=== PATIENT | female | born 1990 | race Caucasian/White ===

== ENCOUNTER → 2016-03-26 | Outpatient (REF) | payer OTHER | LOC: LAB 11:50 | PROVIDERS: ATTEND Nurse Practitioner Family | DX: E10.65 Type 1 diabetes mellitus with hyperglycemia (principal) | CPT/HCPCS: 83036 ==

== ENCOUNTER 2016-07-04 10:15 | Emergency (ER) | payer OTHER ==
[~2016-07-04] VITALS: Ht 170.2 cm; Wt 100.0 kg
[~2016-07-04 10:15] MED LIST: Amoxicillin; FERR-74 PO; IBUP-15 PO; INSASP1U SQ; INSU100V5 SQ; OXYC1TAB87 PO; PREN-46 PO; SULF-228 PO
--- OUTSIDE RECORDS SUMMARY | 2016-07-04 10:20 | XMS REPORT | Continuity of Care Document ---
Author Author [facility] Address Unknown Phone Unavailable Allergies Active Description Code Type Severity Reaction Onset Reported/Identified Relationship to Patient Clinical Status Yes No Known Drug Allergies [id number] Drug Allergy Unknown N/ A 09/09/2012 Medications Problems Date Dx Coded Attending Type Code Diagnosis Diagnosed By 09/09/2012 Ot 564.09 09/09/2012 Ot 682.3 09/09/2012 Ot 789.09 04/09/2013 Kulwinder Moscoso MD Ot 250.02 DIAB LILI WO COMPL, TYPE II OR UNSPEC TY 04/09/2013 Kulwinder Moscoso MD Ot V65.3 DIETARY SURVEIL/ASSI[employer]ACH 08/12/2013 TONO RICHARD MD Ot 250.00 DIAB LLII WO COMPL, TYPE II OR UNSPEC TY 08/12/2013 TONO RICHARD MD Ot 285.1 AC POSTHEMORRHAG ANEMIA 08/12/2013 TONO RICHARD MD Ot 285.29 ANEMIA OF OTHER CHRONIC DISEASE 08/12/2013 TONO RICHARD MD Ot 648.01 DIABETES-DELIVERED 08/12/2013 TONO RICHARD MD Ot 648.21 ANEMIA-DELIVERED 08/12/2013 TONO RICHARD MD Ot 649.01 TOBACCO USE DISORDER COMP PREG/ CHILDBIRT 08/12/2013 TONO RICHARD MD Ot 661.01 PRIM UTERINE INERT-DELIV 08/12/2013 TONO RICHARD MD Ot V27.0 DELIVER-SINGLE LIVEBORN 08/12/2013 TONO RICHARD MD Ot V58.67 LONG-TERM (CURRENT) USE OF INSULIN 02/15/2014 Kulwinder Moscoso MD Ot 640.90 02/15/2014 Kulwinder Moscoso MD Ot 640.90 02/15/2014 Kulwinder Moscoso MD Ot 640.90 02/15/2014 Kulwinder Moscoso MD Ot V72.42 02/15/2014 Danis ESQUIVEL, Kulwinder Sweeney Ot 250.00 02/15/2014 Danis ESQUIVEL, Kulwinder Sweeney Ot V49.89 02/15/2014 Ot 250.02 02/15/2014 Ot V65.3 02/15/2014 JOSE MANUEL ESQUIVEL, TONO Munoz Ot 648.03 02/15/2014 JOSE MANUEL ESQUIVEL, TONO Munoz Ot V22.1 02/15/2014 JOSE MANUEL ESQUIVEL, TONO Munoz Ot 648.03 02/15/2014 JOSE MANUEL ESQUIVEL, TONO Munoz Ot V28.81 05/17/2014 ANURADHA ESQUIVEL, FAY Maddox Ot 724.2 05/17/2014 ANURADHA ESQUIVEL, FAY Maddox Ot V57.1 05/21/2014 ANURADHA ESQUIVEL, FAY Maddox Ot 724.2 LUMBAGO 05/21/2014 ANURADHA ESQUIVEL, FAY Maddox Ot V57.1 PHYSICAL THERAPY NEC 07/14/2014 Danis ESQUIVEL, Kulwinder Sweeney Ot V72.42 07/14/2014 Danis ESQUIVEL, Kulwinder Sweeney Ot 250.00 07/14/2014 JOSE MANUEL ESQUIVEL, TONO Munoz Ot V22.1 01/20/2015 JAYANT GILLIS MD, JD Cortez Ot N89.8 02/12/2015 Danis ESQUIVEL, Kulwinder Sweeney Ot 640.90 02/12/2015 Danis ESQUIVEL, Kulwinder Sweeney Ot 640.90 02/12/2015 Danis ESQUIVEL, Kulwinder Sweeney Ot 640.90 02/21/2015 JAYANT GILLIS MD, JD Cortez Ot N89.8 05/20/2015 Danis ESQUIVEL, Kulwinder Sweeney Ot V72.42 05/20/2015 Danis ESQUIVEL, Kulwinder Sweeney Ot 250.00 05/20/2015 Danis ESQUIVEL, Kulwinder Sweeney Ot V49.89 05/20/2015 Ot 250.02 05/20/2015 Ot V65.3 05/20/2015 JOSE MANUEL ESQUIVEL, TONO Munoz Ot 648.03 05/20/2015 JOSE MANUEL ESQUIVEL, TONO Munoz Ot V22.1 05/20/2015 JOSE MANUEL ESQUIVEL, TONO Munoz Ot 648.03 05/20/2015 JOSE MANUEL ESQUIVEL, TONO Munoz Ot V28.81 05/20/2015 JOSE MANUEL ESQUIVELTONO Ot 250.00 05/20/2015 TONO RICHARD MD Ot 648.03 05/20/2015 TONO RICHARD MD Ot V28.89 05/20/2015 TONO RICHARD MD Ot V58.67 05/20/2015 TONO RICHARD MD Ot 250.00 05/20/2015 TONO RICHARD MD Ot 648.03 05/20/2015 TONO RICHARD MD Ot V58.67 05/20/2015 JAYANT GILLIS MD, JD Cortez Ot N89.8 05/22/2015 WILGERS, DARLIN L OIL CHANGER Ot E10.65 06/02/2015 WILGERS, DARLIN L OIL CHANGER Ot E10.65 TYPE 1 DIABETES MELLITUS WITH HYPERGLYCE 06/04/2015 WILGERS, DARLIN L OIL CHANGER Ot E10.65 TYPE 1 DIABETES MELLITUS WITH HYPERGLYCE 07/03/2015 WILGERS, DARLIN L OIL CHANGER Ot E10.65 TYPE 1 DIABETES MELLITUS WITH HYPERGLYCE 10/07/2015 WILGERS, DARLIN L OIL CHANGER Ot E10.65 TYPE 1 DIABETES MELLITUS WITH HYPERGLYCE 10/08/2015 WILGERS, DARLIN L OIL CHANGER Ot E10.65 TYPE 1 DIABETES MELLITUS WITH HYPERGLYCE 01/14/2016 Danis ESQUIVEL, Kulwinder Sweeney Ot V72.42 EXAMINATION OR TEST, POSITIVE 01/14/2016 Kulwinder Moscoso MD Ot 250.00 DIAB LILI WO COMPL, TYPE II OR UNSPEC TY 01/14/2016 Kulwinder Moscoso MD Ot V49.89 OTH SPEC CONDITIONS INFLU HEALTH 01/14/2016 TONO RICHARD MD Ot 648.03 DIABETES-ANTEPARTUM 01/14/2016 TONO RICHARD MD Ot V22.1 SUPERVIS OTH NORMAL PREG 01/14/2016 TONO RICHARD MD Ot 648.03 DIABETES-ANTEPARTUM 01/14/2016 TONO RICHARD MD Ot V28.81 ENCOUNTER FOR ANATOMIC SURVEY 01/14/2016 OTNO RICHARD MD Ot 250.00 DIAB LILI WO COMPL, TYPE II OR UNSPEC TY 01/14/2016 TONO RICHARD MD Ot 648.03 DIABETES-ANTEPARTUM 01/14/2016 TONO RICHARD MD Ot V28.89 OTHER SPECIFIED SCREENING 01/14/2016 TONO RICHARD MD Ot V58.67 LONG-TERM (CURRENT) USE OF INSULIN 01/14/2016 TONO RICHARD MD Ot 250.00 DIAB LILI WO COMPL, TYPE II OR UNSPEC TY 01/14/2016 TONO RICHARD MD Ot 648.03 DIABETES-ANTEPARTUM 01/14/2016 TONO RICHARD MD Ot V58.67 LONG-TERM (CURRENT) USE OF INSULIN 01/14/2016 JAYANT GILLIS MD, JD Cortez Ot N89.8 OTHER SPECIFIED NONINFLAMMATORY DISORDER 01/14/2016 WILGERS, DARLIN L OIL CHANGER Ot E10.65 TYPE 1 DIABETES MELLITUS WITH HYPERGLYCE 01/14/2016 WILGERS, DARLIN L OIL CHANGER Ot E10.65 TYPE 1 DIABETES MELLITUS WITH HYPERGLYCE 01/16/2016 WILGERS, DARLIN L OIL CHANGER Ot E10.65 TYPE 1 DIABETES MELLITUS WITH HYPERGLYCE 01/20/2016 WILGERS, DARLIN L OIL CHANGER Ot G56.01 CARPAL TUNNEL SYNDROME, RIGHT UPPER LIMB 01/23/2016 WILGERS, DARLIN L OIL CHANGER Ot M79.1 MYALGIA 01/23/2016 WILGERS, DARLIN L OIL CHANGER Ot R53.83 OTHER FATIGUE 01/24/2016 WILGERS, DARLIN L OIL CHANGER Ot E10.65 TYPE 1 DIABETES MELLITUS WITH HYPERGLYCE 02/06/2016 WILGERS, DARLIN L OIL CHANGER Ot G56.01 CARPAL TUNNEL SYNDROME, RIGHT UPPER LIMB 02/06/2016 WILGERS, DARLIN L OIL CHANGER Ot M79.1 MYALGIA 02/06/2016 WILGERS, DARLIN L OIL CHANGER Ot R53.83 OTHER FATIGUE 04/01/2016 WILGERS, DARLIN L OIL CHANGER Ot E10.65 TYPE 1 DIABETES MELLITUS WITH HYPERGLYCE 04/07/2016 WILGERS, DARLIN L OIL CHANGER Ot E10.65 TYPE 1 DIABETES MELLITUS WITH HYPERGLYCE 04/13/2016 WILGERS, DARLIN L OIL CHANGER Ot E10.65 TYPE 1 DIABETES MELLITUS WITH HYPERGLYCE 06/02/2016 Kulwinder Moscoso MD Ot V72.42 EXAMINATION OR TEST, POSITIVE 06/02/2016 Kulwinder Moscoso MD Ot 250.00 DIAB LILI WO COMPL, TYPE II OR UNSPEC TY 06/02/2016 Kulwinder Moscoso MD Ot V49.89 OTH SPEC CONDITIONS INFLU HEALTH 06/02/2016 TONO RICHARD MD Ot 648.03 DIABETES-ANTEPARTUM 06/02/2016 TONO RICHARD MD Ot V22.1 SUPERVIS OTH NORMAL PREG 06/02/2016 TONO RICHARD MD Ot 648.03 DIABETES-ANTEPARTUM 06/02/2016 TONO RICHARD MD Ot V28.81 ENCOUNTER FOR ANATOMIC SURVEY 06/02/2016 TONO RICHARD MD Ot 250.00 DIAB LILI WO COMPL, TYPE II OR UNSPEC TY 06/02/2016 TONO RICHARD MD Ot 648.03 DIABETES-ANTEPARTUM 06/02/2016 TONO RICHARD MD Ot V28.89 OTHER SPECIFIED SCREENING 06/02/2016 TONO RICHARD MD Ot V58.67 LONG-TERM (CURRENT) USE OF INSULIN 06/02/2016 TONO RICHARD MD Ot 250.00 DIAB LILI WO COMPL, TYPE II OR UNSPEC TY 06/02/2016 TONO RICHARD MD Ot 648.03 DIABETES-ANTEPARTUM 06/02/2016 TONO RICHARD MD Ot V58.67 LONG-TERM (CURRENT) USE OF INSULIN 06/02/2016 JAYANT GILLIS MD, JD Cortez Ot N89.8 OTHER SPECIFIED NONINFLAMMATORY DISORDER 06/02/2016 WILGERS, DARLIN L OIL CHANGER Ot E10.65 TYPE 1 DIABETES MELLITUS WITH HYPERGLYCE 06/02/2016 WILGERS, DARLIN L OIL CHANGER Ot E10.65 TYPE 1 DIABETES MELLITUS WITH HYPERGLYCE 06/02/2016 WILGERS, DARLIN L OIL CHANGER Ot E10.65 TYPE 1 DIABETES MELLITUS WITH HYPERGLYCE 06/02/2016 WILGERS, DARLIN L OIL CHANGER Ot G56.01 CARPAL TUNNEL SYNDROME, RIGHT UPPER LIMB 06/02/2016 WILGERS, DARLIN L OIL CHANGER Ot M79.1 MYALGIA 06/02/2016 WILGERS, DARLIN L OIL CHANGER Ot R53.83 OTHER FATIGUE 06/02/2016 WILGERS, DARLIN L OIL CHANGER Ot E10.65 TYPE 1 DIABETES MELLITUS WITH HYPERGLYCE 06/02/2016 WILGERS, DARLIN L OIL CHANGER Ot E10.65 TYPE 1 DIABETES MELLITUS WITH HYPERGLYCE 06/02/2016 WILGERS, DARLIN L OIL CHANGER Ot E10.65 TYPE 1 DIABETES MELLITUS WITH HYPERGLYCE 06/02/2016 WILGERS, DARLIN L OIL CHANGER Ot G56.01 CARPAL TUNNEL SYNDROME, RIGHT UPPER LIMB 06/02/2016 DARLIN VENTURA Arabella OIL CHANGER Ot M79.1 MYALGIA 06/02/2016 DARLIN VENTURA Arabella OIL CHANGER Ot R53.83 OTHER FATIGUE 06/02/2016 DARLIN VENTURA Arabella OIL CHANGER Ot E10.65 TYPE 1 DIABETES MELLITUS WITH HYPERGLYCE 06/10/2016 DARLIN VENTURA Arabella OIL CHANGER Ot E10.65 TYPE 1 DIABETES MELLITUS WITH HYPERGLYCE 06/10/2016 Kulwinder Moscoso MD Ot V72.42 EXAMINATION OR TEST, POSITIVE 06/10/2016 Kulwinder Moscoso MD Ot 250.00 DIAB LILI WO COMPL, TYPE II OR UNSPEC TY 06/10/2016 Kulwinder Moscoso MD Ot V49.89 OTH SPEC CONDITIONS INFLU HEALTH 06/10/2016 TONO RICHARD MD Ot 648.03 DIABETES-ANTEPARTUM 06/10/2016 TONO RICHARD MD Ot V22.1 SUPERVIS OTH NORMAL PREG 06/10/2016 TONO RICHARD MD Ot 648.03 DIABETES-ANTEPARTUM 06/10/2016 TONO RICHARD MD Ot V28.81 ENCOUNTER FOR ANATOMIC SURVEY 06/10/2016 TONO RICHARD MD Ot 250.00 DIAB LILI WO COMPL, TYPE II OR UNSPEC TY 06/10/2016 TONO RICHARD MD Ot 648.03 DIABETES-ANTEPARTUM 06/10/2016 TONO RICHARD MD Ot V28.89 OTHER SPECIFIED SCREENING 06/10/2016 TONO RICHARD MD Ot V58.67 LONG-TERM (CURRENT) USE OF INSULIN 06/10/2016 TONO RICHARD MD Ot 250.00 DIAB LILI WO COMPL, TYPE II OR UNSPEC TY 06/10/2016 TONO RICHARD MD Ot 648.03 DIABETES-ANTEPARTUM 06/10/2016 TONO RICHARD MD Ot V58.67 LONG-TERM (CURRENT) USE OF INSULIN 06/10/2016 JAYANT GILLIS MD, JD Cortez Ot N89.8 OTHER SPECIFIED NONINFLAMMATORY DISORDER 06/10/2016 CARINTERRY DARLIN Arabella OIL CHANGER Ot E10.65 TYPE 1 DIABETES MELLITUS WITH HYPERGLYCE 06/10/2016 DARLIN VENTURA OIL CHANGER Ot E10.65 TYPE 1 DIABETES MELLITUS WITH HYPERGLYCE 06/10/2016 DARLIN VENTURA OIL CHANGER Ot E10.65 TYPE 1 DIABETES MELLITUS WITH HYPERGLYCE 06/10/2016 DARLIN VENTURA OIL CHANGER Ot G56.01 CARPAL TUNNEL SYNDROME, RIGHT UPPER LIMB 06/10/2016 DARLIN VENTURA OIL CHANGER Ot M79.1 MYALGIA 06/10/2016 DARLIN VENTURA OIL CHANGER Ot R53.83 OTHER FATIGUE 06/10/2016 DARLIN VENTURA OIL CHANGER Ot E10.65 TYPE 1 DIABETES MELLITUS WITH HYPERGLYCE 06/10/2016 DARLIN VENTURA OIL CHANGER Ot M79.1 MYALGIA 06/10/2016 DARLIN VENTURA OIL CHANGER Ot R53.83 OTHER FATIGUE 06/10/2016 DARLIN VENTURA OIL CHANGER Ot G56.01 CARPAL TUNNEL SYNDROME, RIGHT UPPER LIMB 06/10/2016 DARLIN VENTURA OIL CHANGER Ot E10.65 TYPE 1 DIABETES MELLITUS WITH HYPERGLYCE 06/24/2016 Kulwinder Moscoso MD Ot V72.42 EXAMINATION OR TEST, POSITIVE 06/24/2016 Kulwinder Moscoso MD Ot 250.00 DIAB LILI WO COMPL, TYPE II OR UNSPEC TY 06/24/2016 Kulwinder Moscoso MD Ot V49.89 OTH SPEC CONDITIONS INFLU HEALTH 06/24/2016 TONO RICHARD MD Ot 648.03 DIABETES-ANTEPARTUM 06/24/2016 TONO RICHARD MD Ot V22.1 SUPERVIS OTH NORMAL PREG 06/24/2016 TONO RICHARD MD Ot 648.03 DIABETES-ANTEPARTUM 06/24/2016 TONO RICHARD MD Ot V28.81 ENCOUNTER FOR ANATOMIC SURVEY 06/24/2016 TONO RIHCARD MD Ot 250.00 DIAB LILI WO COMPL, TYPE II OR UNSPEC TY 06/24/2016 TONO RICHARD MD Ot 648.03 DIABETES-ANTEPARTUM 06/24/2016 TONO RICHARD MD Ot V28.89 OTHER SPECIFIED SCREENING 06/24/2016 TONO RICHARD MD Ot V58.67 LONG-TERM (CURRENT) USE OF INSULIN 06/24/2016 TONO RICHARD MD Ot 250.00 DIAB LILI WO COMPL, TYPE II OR UNSPEC TY 06/24/2016 TONO RICHARD MD Ot 648.03 DIABETES-ANTEPARTUM 06/24/2016 TONO RICHARD MD Ot V58.67 LONG-TERM (CURRENT) USE OF INSULIN 06/24/2016 JAYANT GILLIS MD, JD Cortez Ot N89.8 OTHER SPECIFIED NONINFLAMMATORY DISORDER 06/24/2016 DARLIN VENTURA OIL CHANGER Ot E10.65 TYPE 1 DIABETES MELLITUS WITH HYPERGLYCE 06/24/2016 WILDARLIN STEWART OIL CHANGER Ot E10.65 TYPE 1 DIABETES MELLITUS WITH HYPERGLYCE 06/24/2016 WILDARLIN STEWART OIL CHANGER Ot E10.65 TYPE 1 DIABETES MELLITUS WITH HYPERGLYCE 06/24/2016 WILDARLIN STEWART OIL CHANGER Ot G56.01 CARPAL TUNNEL SYNDROME, RIGHT UPPER LIMB 06/24/2016 DARLIN VENTURA OIL CHANGER Ot M79.1 MYALGIA 06/24/2016 DARLIN VENTURA OIL CHANGER Ot R53.83 OTHER FATIGUE 06/24/2016 DARLIN VENTURA OIL CHANGER Ot E10.65 TYPE 1 DIABETES MELLITUS WITH HYPERGLYCE 06/24/2016 DARLIN VENTURA OIL CHANGER Ot E10.65 TYPE 1 DIABETES MELLITUS WITH HYPERGLYCE Procedures Code Description Performed By Performed On 74.1 LOW CERVICAL 08/09/2013 Results Test Result Range LIVER PANEL - 10/02/15 13:45 BILIRUBIN,TOTAL 0.7 0.1-1.0 Serum or plasma alkaline phosphatase measurement 90 38-126 ASPARTATE AMINO TRANSFERASE 46 15-37 ALANINE AMINOTRANSFERASE 67 30-65 Serum or plasma conjugated bilirubin/total bilirubin 0.0 0.0-0.4 Serum or plasma total protein measurement 7.7 6.4-8.5 Serum or plasma albumin measurement 4.6 3.4-5.0 THYROID STIMULATING HORMONE* - 10/02/15 13:45 THYROID STIMULATING HORMONE 2.82 0.46- 4.68 HEMOGLOBIN A1C* - 10/02/15 13:45 HEMOGLOBIN A1C* 11.0 4.0-6.0 LIPID PANEL - 10/02/15 13:45 Cholesterol 199 50-200 HDL Cholesterol 43 40-60 Triglycerides 476 10-150 LDL CHOLESTEROL TNP 50-130 VLDL Cholesterol, calc TNP 4.00-30.00 Cholesterol.total/Cholesterol.in HDL 4.6 0.0-5.0 Comprehensive metabolic panel - 01/12/16 09:15 Sodium measurement 255 70-110 Carbon dioxide measurement 24 22-29 Serum or plasma anion gap 19.9 3-15 BLOOD UREA NITROGEN 10 7-18 CREATININE SERUM 0.63 0.6-1.2 Brucella species antibody panel (IgG, IgM) 16 10-20 Estimated glomerular filtration rate (GFR) 140.5 Estimated glomerular filtration rate (GFR) non- 116.1 OSMOLALITY,CALCULATED 287 280-300 CALCIUM 9.7 8.8-10.8 Calculated ionized calcium measurement 3.9 3.8-4.6 BILIRUBIN,TOTAL 0.8 0.1-1.0 Serum or plasma alkaline phosphatase measurement 84 38-126 ASPARTATE AMINO TRANSFERASE 26 15-37 ALANINE AMINOTRANSFERASE 44 30-65 Serum or plasma total protein measurement 8.4 6.4-8.5 Serum or plasma albumin measurement 4.4 3.4-5.0 Serum or plasma albumin/globulin mass ratio 1.100 1.1-1.8 LIPID PANEL - 01/12/16 09:15 Cholesterol 159 50-200 HDL Cholesterol 36 40-60 Triglycerides 114 10-150 LDL CHOLESTEROL 100 50-130 VLDL Cholesterol, calc 23 4.00-30.00 Cholesterol.total/Cholesterol.in HDL 4.4 0.0-5.0 HEMOGLOBIN A1C* - 01/12/16 09:15 HEMOGLOBIN A1C* 7.5 4.0-6.0 UA (urinalysis) - 01/16/16 14:00 COLLECTION METHOD CLEAN CATCH Color of urine by auto Yellow Urine appearance determination Clear Urine pH measurement by automated test strip 7.0 5.0 - 8.0 Specific gravity of urine by automated test strip 1.025 1.005-1.030 PROTEIN, URINE 1+ Urine glucose detection by automated test strip 2+ Negative Urine erythrocytes count by automated test strip (number/volume) Trace-intact Negative Urine ketones detection by automated test strip Negative Negative NITRITE,URINE Negative Negative Urine total bilirubin detection by automated test strip Negative Negative Urine urobilinogen measurement by automated test strip (mass/volume) 2.0 0.2-1.0 Urine leukocyte esterase detection by dipstick Negative Negative Microscopic examination of urine - 01/16/16 14:00 Urine volume measurement 12 mL Urine erythrocytes detection by automated method None Seen Automated urine sediment leukocyte count by microscopy (number/high power field ) Bacteria 3+ Negative SQUAMOUS EPITHELIAL CELL,UR 50-100 Comprehensive metabolic panel - 01/16/16 14:00 Sodium measurement 270 70-110 Carbon dioxide measurement 25 22-29 Serum or plasma anion gap 16.7 3-15 BLOOD UREA NITROGEN 10 7-18 CREATININE SERUM 0.63 0.6-1.2 Brucella species antibody panel (IgG, IgM) 16 10-20 Estimated glomerular filtration rate (GFR) 140.5 Estimated glomerular filtration rate (GFR) non- 116.1 OSMOLALITY,CALCULATED 287 280-300 CALCIUM 9.5 8.8-10.8 Calculated ionized calcium measurement 4.3 3.8-4.6 BILIRUBIN,TOTAL 0.6 0.1-1.0 Serum or plasma alkaline phosphatase measurement 81 38-126 ASPARTATE AMINO TRANSFERASE 22 15-37 ALANINE AMINOTRANSFERASE 36 30-65 Serum or plasma total protein measurement 6.7 6.4-8.5 Serum or plasma albumin measurement 4.1 3.4-5.0 Serum or plasma albumin/globulin mass ratio 1.576 1.1-1.8 Serum or plasma creatine kinase measurement - 01/16/16 14:00 Serum or plasma creatine kinase measurement 96 30-135 THYROID STIMULATING HORMONE* - 01/16/16 14:00 THYROID STIMULATING HORMONE 1.99 0.46- 4.68 C REACTIVE PROTEIN* - 01/16/16 14:00 C REACTIVE PROTEIN* 2.00 0.0-0.9 Complete blood count (CBC) with automated white blood cell (WBC) differential - 01/16/16 14:00 Blood automated leukocyte count 5.97 4.0 -11.0 Erythrocytes 4.63 4.00-5.00 12.0-16.0;g/dL 13.7 12.0-15.5 Hematocrit 40.60 35.00-45.00 Automated erythrocyte mean corpuscular volume 88 80-100 Mean corpuscular hemoglobin (MCH) determination 29.6 26.0-34.0 Automated erythrocyte mean corpuscular hemoglobin concentration measurement ( mass/volume) 33.7 31.0-37.0 Erythrocyte distribution width 12.3 11.8 -15.6 Automated blood platelet count 231 150- 450 Automated blood platelet mean volume measurement 11.4 6.0-9.5 Automated neutrophil percentage 56 51- 67 Lymphocytes/100 leukocytes 31 20-46 Automated monocyte percentage 8 3-11 Eosinophil count auto 3 0-4 Automated basophil percentage 1 0-2 Automated blood neutrophil count 3.4 Blood lymphocytes count (number/volume) 1.9 Automated blood monocyte count 0.5 Blood absolute eosinophil count 0.2 Basophils 0.1 Erythrocyte sedimentation rate - 01/16/16 14:00 Erythrocyte sedimentation rate 21 0-21 HEMOGLOBIN A1C* - 03/26/16 11:00 HEMOGLOBIN A1C* 7.0 4.0-6.0 Encounters ACCT No. Visit Date/Time Discharge Status Pt. Type Provider Facility Loc./Unit Complaint [id number] 01/08/2015 16:10:00 2014 23:59:59 CLS Outpatient JAYANT GILLIS MD, JD [facility] LAB [id number] 01/08/2015 16:48:00 2014 16:48:00 CAN Preadmit DARLIN VENTURA OIL CHANGER [id number] 04/12/2014 13:45:00 2014 14:15:00 [facility] [id number] 08/08/2013 19:48:00 2013 14:05:00 DIS Inpatient OVERHOLJose Guadalupe ESQUIVEL, [facility] OB [id number] 07/31/2013 13:59:00 2013 23:59:59 CLS Outpatient JOSE MANUEL ESQUIVEL, [facility] RAD TYPE II DIABETES,ON INSULIN [id number] 07/16/2013 14:46:00 2013 23:59:59 CLS Outpatient JOSE MANUEL ESQUIVEL [facility] RAD CK GROWTH, TYPE II DIABETES ON INSULIN [id number] 06/12/2013 10:10:00 2013 23:59:59 CLS Outpatient JOSE MANUEL ESQUIVEL, [facility] RAD TYPE II DIABETES [id number] 05/29/2013 15:54:00 2013 23:59:59 CLS Outpatient JOSE MANUEL ESQUIVEL [facility] LAB LAB DROP OFF FROM DOCTOR OFFICE [id number] 04/14/2013 13:19:00 2013 23:59:59 CLS Outpatient JOSE MANUEL ESQUIVEL [facility] LAB LAB [id number] 01/09/2013 13:00:00 2013 00:01:00 DIS Outpatient Danis ESQUIVEL, [facility] DT DIABETES AND [id number] 12/22/2012 13:10:00 2012 23:59:59 CLS Outpatient Danis ESQUIVEL, [facility] LAB [id number] 12/20/2012 12:28:00 2012 23:59:59 CLS Outpatient Danis ESQUIVEL, [facility] LAB [id number] 12/18/2012 14:31:00 2012 23:59:59 CLS Outpatient Danis ESQUIVEL, [facility] LAB [id number] 11/15/2012 14:13:00 2012 23:59:59 CLS Outpatient Danis ESQUIVEL, [facility] LAB [id number] 11/10/2012 12:33:00 2012 23:59:59 CLS Outpatient Danis ESQUIVEL, [facility] LAB [id number] 11/07/2012 14:34:00 2012 23:59:59 CLS Outpatient Danis ESQUIVEL, [facility] LAB [id number] 07/04/2016 10:18:00 ACT Emergency JERILYN ESQUIVEL, [facility] ED [id number] 03/26/2016 11:50:00 ACT Outpatient [facility] LAB LAB DROP OFF FROM [facility] [id number] 01/16/2016 14:07:00 ACT Outpatient [facility] LAB LAB DROP OFF BY DR OFFICE [id number] 01/14/2016 15:40:00 ACT Outpatient [facility] RAD [id number] 01/12/2016 10:45:00 ACT Outpatient [facility] LAB LAB DROP OFF BY DR OFFICE [id number] 10/02/2015 13:57:00 ACT Outpatient [facility] LAB LAB DROP OFF: DARLIN [facility] [id number] 05/20/2015 10:45:00 ACT Outpatient [facility] LAB LAB DROP OFF: DARLIN VENTURA [id number] 04/10/2013 13:00:00 Document Registration [id number] 09/09/2012 21:39:00 Document Registration
--- OUTSIDE RECORDS SUMMARY | 2016-07-04 10:22 | XMS REPORT | Continuity of Care Document ---
Author Author [facility] Address Unknown Phone Unavailable Allergies Active Description Code Type Severity Reaction Onset Reported/Identified Relationship to Patient Clinical Status Yes No Known Drug Allergies [id number] Drug Allergy Unknown N/ A 09/09/2012 Medications Problems Date Dx Coded Attending Type Code Diagnosis Diagnosed By 09/09/2012 Ot 564.09 09/09/2012 Ot 682.3 09/09/2012 Ot 789.09 04/09/2013 Kulwinder Moscoso MD Ot 250.02 DIAB LILI WO COMPL, TYPE II OR UNSPEC TY 04/09/2013 Kulwinder Moscoso MD Ot V65.3 DIETARY SURVEIL/KNIFE GRINDER 08/12/2013 TONO RICHARD MD Ot 250.00 DIAB LILI [...] Cortez Ot N89.8 05/22/2015 WILGERS, DARLIN L CORE EXTRUDER Ot E10.65 06/02/2015 WILGERS, DARLIN L CORE EXTRUDER Ot E10.65 TYPE 1 DIABETES MELLITUS WITH HYPERGLYCE 06/04/2015 WILGERS, DARLIN L CORE EXTRUDER Ot E10.65 TYPE 1 DIABETES MELLITUS WITH HYPERGLYCE 07/03/2015 WILGERS, DARLIN L CORE EXTRUDER Ot E10.65 TYPE 1 DIABETES MELLITUS WITH HYPERGLYCE 10/07/2015 WILGERS, DARLIN L CORE EXTRUDER Ot E10.65 TYPE 1 DIABETES MELLITUS WITH HYPERGLYCE 10/08/2015 WILGERS, DARLIN L CORE EXTRUDER Ot E10.65 TYPE 1 DIABETES MELLITUS WITH [...] Ot V28.81 ENCOUNTER FOR ANATOMIC SURVEY 01/14/2016 TONO RICHARD MD Ot 250.00 DIAB [...] SPECIFIED NONINFLAMMATORY DISORDER 01/14/2016 WILGERS, DARLIN L CORE EXTRUDER Ot E10.65 TYPE 1 DIABETES MELLITUS WITH HYPERGLYCE 01/14/2016 WILGERS, DARLIN L CORE EXTRUDER Ot E10.65 TYPE 1 DIABETES MELLITUS WITH HYPERGLYCE 01/16/2016 WILGERS, DARLIN L CORE EXTRUDER Ot E10.65 TYPE 1 DIABETES MELLITUS WITH HYPERGLYCE 01/20/2016 WILGERS, DARLIN L CORE EXTRUDER Ot G56.01 CARPAL TUNNEL SYNDROME, RIGHT UPPER LIMB 01/23/2016 WILGERS, DARLIN L CORE EXTRUDER Ot M79.1 MYALGIA 01/23/2016 WILGERS, DARLIN L CORE EXTRUDER Ot R53.83 OTHER FATIGUE 01/24/2016 WILGERS, DARLIN L CORE EXTRUDER Ot E10.65 TYPE 1 DIABETES MELLITUS WITH HYPERGLYCE 02/06/2016 WILGERS, DARLIN L CORE EXTRUDER Ot G56.01 CARPAL TUNNEL SYNDROME, RIGHT UPPER LIMB 02/06/2016 WILGERS, DARLIN L CORE EXTRUDER Ot M79.1 MYALGIA 02/06/2016 WILGERS, DARLIN L CORE EXTRUDER Ot R53.83 OTHER FATIGUE 04/01/2016 WILGERS, ADRLIN L CORE EXTRUDER Ot E10.65 TYPE 1 DIABETES MELLITUS WITH HYPERGLYCE 04/07/2016 WILGERS, DARLIN L CORE EXTRUDER Ot E10.65 TYPE 1 DIABETES MELLITUS WITH HYPERGLYCE 04/13/2016 WILGERS, DARLIN L CORE EXTRUDER Ot E10.65 TYPE 1 DIABETES MELLITUS WITH [...] SPECIFIED NONINFLAMMATORY DISORDER 06/02/2016 WILGERS, DARLIN L CORE EXTRUDER Ot E10.65 TYPE 1 DIABETES MELLITUS WITH HYPERGLYCE 06/02/2016 WILGERS, DARLIN L CORE EXTRUDER Ot E10.65 TYPE 1 DIABETES MELLITUS WITH HYPERGLYCE 06/02/2016 WILGERS, DARLIN L CORE EXTRUDER Ot E10.65 TYPE 1 DIABETES MELLITUS WITH HYPERGLYCE 06/02/2016 WILGERS, DARLIN L CORE EXTRUDER Ot G56.01 CARPAL TUNNEL SYNDROME, RIGHT UPPER LIMB 06/02/2016 WILGERS, DARLIN L CORE EXTRUDER Ot M79.1 MYALGIA 06/02/2016 WILGERS, DARLIN L CORE EXTRUDER Ot R53.83 OTHER FATIGUE 06/02/2016 WILGERS, DARLIN L CORE EXTRUDER Ot E10.65 TYPE 1 DIABETES MELLITUS WITH HYPERGLYCE 06/02/2016 WILGERS, DARLIN L CORE EXTRUDER Ot E10.65 TYPE 1 DIABETES MELLITUS WITH HYPERGLYCE 06/02/2016 WILGERS, DARLIN L CORE EXTRUDER Ot E10.65 TYPE 1 DIABETES MELLITUS WITH HYPERGLYCE 06/02/2016 WILGERS, DARLIN L CORE EXTRUDER Ot G56.01 CARPAL TUNNEL SYNDROME, RIGHT UPPER LIMB 06/02/2016 DARLIN VENTURA Arabella CORE EXTRUDER Ot M79.1 MYALGIA 06/02/2016 DARLIN VENTURA Arabella CORE EXTRUDER Ot R53.83 OTHER FATIGUE 06/02/2016 DARLIN VENTURA Arabella CORE EXTRUDER Ot E10.65 TYPE 1 DIABETES MELLITUS WITH HYPERGLYCE 06/10/2016 DARLIN VENTURA Arabella CORE EXTRUDER Ot E10.65 TYPE 1 DIABETES MELLITUS WITH [...] RICHARD MD Ot 648.03 DIABETES-ANTEPARTUM 06/10/2016 TONO RICHADR MD Ot V28.81 ENCOUNTER FOR ANATOMIC SURVEY [...] TONO RICHARD MD Ot 648.03 DIABETES-ANTEPARTUM 06/10/2016 TOON RICHARD MD Ot V58.67 LONG-TERM (CURRENT) USE OF INSULIN 06/10/2016 JAYANT GILLIS MD, JD Cortez Ot N89.8 OTHER SPECIFIED NONINFLAMMATORY DISORDER 06/10/2016 CARINTERRY DARLIN Arabella CORE EXTRUDER Ot E10.65 TYPE 1 DIABETES MELLITUS WITH HYPERGLYCE 06/10/2016 DARLIN VENTURA CORE EXTRUDER Ot E10.65 TYPE 1 DIABETES MELLITUS WITH HYPERGLYCE 06/10/2016 DARLIN VENTURA CORE EXTRUDER Ot E10.65 TYPE 1 DIABETES MELLITUS WITH HYPERGLYCE 06/10/2016 DARLIN VENTURA CORE EXTRUDER Ot G56.01 CARPAL TUNNEL SYNDROME, RIGHT UPPER LIMB 06/10/2016 DARLIN VENTURA CORE EXTRUDER Ot M79.1 MYALGIA 06/10/2016 DARLIN VENTURA CORE EXTRUDER Ot R53.83 OTHER FATIGUE 06/10/2016 DARLIN VENTURA CORE EXTRUDER Ot E10.65 TYPE 1 DIABETES MELLITUS WITH HYPERGLYCE 06/10/2016 DARLIN VENTURA CORE EXTRUDER Ot M79.1 MYALGIA 06/10/2016 DARLIN VENTURA CORE EXTRUDER Ot R53.83 OTHER FATIGUE 06/10/2016 DARLIN VENTURA CORE EXTRUDER Ot G56.01 CARPAL TUNNEL SYNDROME, RIGHT UPPER LIMB 06/10/2016 DARLIN VENTURA CORE EXTRUDER Ot E10.65 TYPE 1 DIABETES MELLITUS WITH [...] V28.81 ENCOUNTER FOR ANATOMIC SURVEY 06/24/2016 TONO RICHARD MD Ot 250.00 DIAB [...] OTHER SPECIFIED NONINFLAMMATORY DISORDER 06/24/2016 DARLIN VENTURA CORE EXTRUDER Ot E10.65 TYPE 1 DIABETES MELLITUS WITH HYPERGLYCE 06/24/2016 WILDARLIN STEWART CORE EXTRUDER Ot E10.65 TYPE 1 DIABETES MELLITUS WITH HYPERGLYCE 06/24/2016 WILDARLIN STEWART CORE EXTRUDER Ot E10.65 TYPE 1 DIABETES MELLITUS WITH HYPERGLYCE 06/24/2016 WILDARLIN STEWART CORE EXTRUDER Ot G56.01 CARPAL TUNNEL SYNDROME, RIGHT UPPER LIMB 06/24/2016 DARLIN VENTURA CORE EXTRUDER Ot M79.1 MYALGIA 06/24/2016 DARLIN VENTURA CORE EXTRUDER Ot R53.83 OTHER FATIGUE 06/24/2016 DARLIN VENTURA CORE EXTRUDER Ot E10.65 TYPE 1 DIABETES MELLITUS WITH HYPERGLYCE 06/24/2016 DARLIN VENTURA CORE EXTRUDER Ot E10.65 TYPE 1 DIABETES MELLITUS WITH [...] Status Pt. Type Provider Facility Loc./Unit Complaint [id number] 01/08/2015 16:10:00 2014 23:59:59 CLS Outpatient JAYANT GILLIS MD, JD [facility] LAB [id number] 01/08/2015 16:48:00 2014 16:48:00 CAN Preadmit DARLIN VENTURA CORE EXTRUDER [facility] LAB [facility] [id number] 04/12/2014 13:45:00 2014 14:15:00 [facility] [id number] 08/08/2013 19:48:00 2013 14:05:00 DIS Inpatient OVERHOLJose Guadalupe [facility]QUIV[facility] [id number] 07/31/2013 13:59:00 2013 23:59:59 CLS Outpatient JOSE MANUEL ESQUIVEL, [facility] RAD TYPE II DIABETES,ON INSULIN [id number] 07/16/2013 14:46:00 2013 23:59:59 CLS Outpatient JOSE MANUEL ESQUIVEL [facility] RAD CK GROWTH, TYPE II DIABETES ON INSULIN [id number] 06/12/2013 10:10:00 2013 23:59:59 CLS Outpatient JOSE MANUEL ESQUIVEL, [facility] RAD TYPE II DIABETES [id number] 05/29/2013 15:54:00 2013 23:59:59 CLS Outpatient JOSE MANUEL ESQUIVEL [facility] LAB LAB DROP OFF FROM DOCTOR OFFICE [id number] 04/14/2013 13:19:00 2013 23:59:59 CLS Outpatient JOSE MANUEL EQSUIVEL [facility] LAB LAB [id number] 01/09/2013 13:00:00 2013 00:01:00 DIS Outpatient Danis ESQUIVEL, [facility] DT DIABETES AND [id number] 12/22/2012 13:10:00 2012 23:59:59 CLS Outpatient Danis ESQUIVEL, [facility] LAB [id number] 12/20/2012 12:28:00 2012 23:59:59 CLS Outpatient Danis ESQUIVEL, [facility] LAB [id number] 12/18/2012 14:31:00 2012 23:59:59 CLS Outpatient Danis ESQUIVEL, [facility] LAB [id number] 11/15/2012 14:13:00 2012 23:59:59 CLS Outpatient Danis ESQUIVEL, [facility] LAB [id number] 11/10/2012 12:33:00 2012 23:59:59 CLS Outpatient Danis ESQUIVEL, [facility] LAB [id number] 11/07/2012 14:34:00 2012 23:59:59 CLS Outpatient Danis ESQUIVEL, [facility] LAB [id number] 07/04/2016 10:18:00 ACT Emergency JERILYN ESQUIVEL, [facility] ED [id number] 03/26/2016 11:50:00 ACT Outpatient [facility] LAB LAB DROP OFF FROM [facility] [id number] 01/16/2016 14:07:00 ACT Outpatient [facility] LAB LAB DROP OFF BY DR OFFICE [id number] 01/14/2016 15:40:00 ACT Outpatient [facility] RAD [id number] 01/12/2016 10:45:00 ACT Outpatient [facility] LAB LAB DROP OFF BY DR OFFICE [id number] 10/02/2015 13:57:00 ACT Outpatient [facility] LAB LAB DROP OFF: [facility] [id number] 05/20/2015 10:45:00 ACT Outpatient [facility] LAB LAB DROP OFF: DARLIN VENTURA [id number] 04/10/2013 13:00:00 Document Registration [id number] 09/09/2012 21:39:00 Document Registration
[2016-07-04] MEDS ORDERED: SULF1TAB35 PO (11:53)
[2016-07-04 14:33] VITALS: BP 127/87
== END 2016-07-04 11:58 | disposition home or self-care (01) ==
LOC: ED 10:18
DX: L98.8 Other specified disorders of the skin and subcutaneous tissue (principal)
CPT/HCPCS: 99283